=== PATIENT | female | born 1980 | race Caucasian/White ===

== ENCOUNTER → 2016-08-02 | Outpatient (CLI) | payer OTHER ==
--- NOTE | 2016-08-02 11:53 | XR ---
EXAMINATION TYPE: XR lumbar spine 2 or 3V DATE OF EXAM: 08/02/2016 11:49 AM COMPARISON: NONE HISTORY: 36-year-old female low back strain while lifting an object TECHNIQUE: 3 views FINDINGS: Gentle rotary dextroconvex curvature of the lumbar spine. 5 lumbar type vertebral bodies are present. Vertebral body heights are preserved and alignment is maintained. Minimal facet degenerative change of the lower lumbar spine. IMPRESSION: Gentle dextroconvex rotatory curvature of the lumbar spine could reflect a subtle underlying scoliosi s or could be secondary to muscle strain. Very mild facet arthropathy lower lumbar spine. No vertebra l compression collapse or malalignment.
== END | disposition home or self-care (01) ==
LOC: RADXRMAIN 11:31
PROVIDERS: ATTEND Emergency Medicine
DX: S39.012A Strain of muscle, fascia and tendon of lower back, initial encounter (principal); M12.88 Other specific arthropathies, not elsewhere classified, other specified site; X50.0XXA Overexertion from strenuous movement or load, initial encounter
CPT/HCPCS: 72100

== ENCOUNTER → 2016-08-15 | Outpatient (CLI) | payer OTHER ==
--- NOTE | 2016-08-15 08:11 | MR ---
EXAMINATION TYPE: MR lumbar spine wo con DATE OF EXAM: 08/15/2016 6:39 AM COMPARISON: NONE HISTORY: strain of muscle lsp, low back pain CONTRAST: The patient was injected with mL intravenous gadolinium contrast. Multiplanar, MultiSpin echo imaging of the lumbar spine was performed. L1-L2: Normal disc appearance without desiccation. No herniation, protrusion or disc bulging. No ca nal stenosis is present. Foramina are patent bilaterally. L2-L3: Normal disc appearance without desiccation. No herniation, protrusion or disc bulging. No ca nal stenosis is present. [place]am[place] are patent bilaterally. L3-L4: Normal disc appearance without desiccation. No herniation, protrusion or disc bulging. No ca nal stenosis is present. [place]am[place] are patent bilaterally. L4-L5: Normal disc appearance without desiccation. No herniation, protrusion or disc bulging. No ca nal stenosis is present. Foramina are patent bilaterally. L5-S1: Moderate to severe disc desiccation is noted. Posterior disc bulge with annular tear. No evide nce for reyes herniation. Mild effacement ventral thecal sac. No evidence for central stenosis or lat eral recess stenosis. Lumbar segments are intact. No paraspinal masses are identified. Conus medullaris has a normal appe arance. IMPRESSION: 1. Degenerative disc disease with disc bulging and annular tear at L5-S1.
== END | disposition home or self-care (01) ==
LOC: RADMRIMAIN 06:06
PROVIDERS: ATTEND Emergency Medicine
DX: M51.37 Other intervertebral disc degeneration, lumbosacral region (principal)
CPT/HCPCS: 72148